=== PATIENT | female | born 1975 | race Hispanic/Latino ===

== ENCOUNTER 2022-07-06 05:57 | Day surgery (SDC) | payer BC ==
[2022-07-05 09:01] VITALS: BP 142/96
[2022-07-05 14:54] LABS: BASOPHILS % (AUTO) 0.6 % (0.0-5.0); EOSINOPHILS % (AUTO) 1.9 % (0.0-8.0); HEMATOCRIT 37.4 % (36-48); LYMPHOCYTES % (AUTO) 21.7 % (21.0-51.0); MEAN CORPUSCULAR HEMOGLOBIN 28.7 pg (27.0-33.0); MEAN CORPUSCULAR HGB CONC 32.4 g/dL (32.0-36.0); MEAN CORPUSCULAR VOLUME 88.6 fL (79-99); MONOCYTES % (AUTO) 6.6 % (3.0-13.0); NEUTROPHILS % (AUTO) 68.8 % (40.0-77.0); PLATELET COUNT (AUTO) 304 K/uL (130-400); RED BLOOD CELL COUNT(AUTO) 4.22 MIL/uL (4.00-5.50); RED CELL DISTRIBUTION WIDTH 14.6 % (11.0-15.5); WHITE BLOOD COUNT (AUTO) 11.9 K/uL (4.8-10.8)
[2022-07-06] VITALS (17 sets, daily range): BP systolic 109–147; BP diastolic 72–98
[~2022-07-06] VITALS: Ht 167.6 cm; Wt 94.8 kg
[~2022-07-06 05:57] MED LIST: AMLO-257 PO; CETI10CA5 PO; METO-391 PO
[2022-07-06] MEDS ORDERED: LACTATED RINGERS 1000ML 1,000 ML IV ONE (06:19)
[2022-07-06] MEDS: CLINDAMYCIN IVPB 600MG/50ML 50 ML IV SCH ×2 (06:46→07:25)
[2022-07-06] MEDS: CALDOLOR 800MG+NS 250ML 250 ML IV SCH ×2 (06:46→07:40)
[2022-07-06] MEDS ORDERED: PROPOFOL 10 MG/ML 20ML VIAL IV ONE (07:12)
[2022-07-06] MEDS ORDERED: MIDAZOLAM HCL 1 MG/ML 2ML VIAL ONE (07:12)
[2022-07-06] MEDS ORDERED: FENTANYL CITRATE PF 50 MCG/1 ML 5ML AMP IV ONE (07:13)
[2022-07-06] MEDS ORDERED: ROCURONIUM 10MG/1ML SYR 10 MG/ML ML ONE (07:13)
[2022-07-06] MEDS ORDERED: LIDOCAINE PF 100MG/5ML (2%) SYRINGE 5ML ONE (07:14)
[2022-07-06] MEDS ORDERED: DEXAMETHASONE SOD PHOSPHATE 10MG/ML 1ML VIAL ONE (07:33)
[2022-07-06] MEDS ORDERED: ONDANSETRON 4MG INJ ONE (07:33)
[2022-07-06] MEDS ORDERED: NEOSTIGMINE 5MG/5ML SYR IV ONE (07:47)
[2022-07-06] MEDS ORDERED: GLYCOPYRROLATE 1 MG/5 ML SYRINGE ONE (07:47)
== END 2022-07-06 10:00 | disposition home or self-care (01) ==
LOC: DAH 05:57
PROVIDERS: ATTEND Obstetrics & Gynecology
DX: N92.1 Excessive and frequent menstruation with irregular cycle (principal); I10 Essential (primary) hypertension; E66.01 Morbid (severe) obesity due to excess calories; F17.200 Nicotine dependence, unspecified, uncomplicated; F41.9 Anxiety disorder, unspecified; Z88.8 Allergy status to other drugs, medicaments and biological substances; Z88.0 Allergy status to penicillin; Z98.890 Other specified postprocedural states; Z90.49 Acquired absence of other specified parts of digestive tract; Z72.89 Other problems related to lifestyle
CPT/HCPCS: 84703 ×2; 86850 ×2; 86900 ×2; 86901 ×2; 87426 ×2; 36415 ×2; 85025; 58563; A6260; A4663 ×2; J7030; A4351; C1769; J7120; J3010; J3490; J1100; J2710; J2001; J2250; J2704; J2405; A4215 ×2; A4222 ×2; A4223 ×3; A4335 ×2; A4221 ×2; A4600; J1741